=== PATIENT | male | born 1950 | race Caucasian/White ===

== ENCOUNTER 2023-08-07 20:54 | Inpatient (IN) | payer MEDICARE, OTHER ==
[~2023-08-07] VITALS: Ht 190.5 cm; Wt 99.3 kg
[2023-08-07] MEDS ORDERED: HYDR-3980 PO (21:28)
[2023-08-07] MEDS ORDERED: DULO20CA PO (21:28)
[2023-08-07] MEDS ORDERED: AMLO-212 PO (21:28)
[2023-08-07] MEDS ORDERED: CLON1TAB12 PO (21:28)
[2023-08-07] MEDS ORDERED: PREG150C PO (21:28)
[2023-08-07] MEDS ORDERED: POTA10CA43 PO (21:28)
[2023-08-07] MEDS ORDERED: HYDR25TA4 PO (21:28)
[2023-08-07] MEDS ORDERED: HYDROCODONE/APAP 5-325MG TABLET ONE ×2 (21:55→23:14)
[2023-08-07] MEDS: HYDROCODONE/APAP 5-325MG TABLET PO ONE ×2 (21:57→23:18)
[2023-08-08 03:35] VITALS: BP 140/87; TEMP 97.8; O2SAT 96
[2023-08-08] MEDS ORDERED: MAGNESIUM HYDROXIDE 30 ML LIQUID UDC PO PRN (04:45)
[2023-08-08] MEDS ORDERED: TEMAZEPAM 7.5 MG CAPSULE PO PRN (04:45)
[2023-08-08] MEDS ORDERED: MAG HYDROX/AL HYDROX/SIMETH 30 ML LIQUID UDC PO PRN (04:45)
[2023-08-08] MEDS: CLONAZEPAM 0.5 MG TABLET PO PRN (05:06)
[2023-08-08 07:49] VITALS: BP 124/76; TEMP 98; O2SAT 94
[2023-08-08] MEDS ORDERED: LATA7.5D EACHEYE (09:36)
[2023-08-08] MEDS ORDERED: PREG225C7 PO (09:36)
[2023-08-08] MEDS ORDERED: LISI30TA4 PO (09:36)
[2023-08-08] MEDS: SERTRALINE HCL 50 MG TABLET PO SCH (09:48)
[2023-08-08] MEDS: HYDROCODONE/APAP 10-325 MG TABLET PO PRN (10:33)
[2023-08-08] MEDS ORDERED: LISI20TA30 PO (11:18)
[2023-08-08] MEDS ORDERED: PREG150C46 PO (11:18)
[2023-08-08] MEDS: LISINOPRIL 20 MG TABLET PO SCH (12:58)
[2023-08-08] MEDS: AMLODIPINE 5 MG TABLET PO SCH (12:58)
[2023-08-08] MEDS: HYDROCHLOROTHIAZIDE 25 MG TABLET PO SCH (12:58)
[2023-08-08 15:51] VITALS: BP 127/63; TEMP 98; O2SAT 96
[2023-08-08] MEDS: PREGABALIN 50 MG CAPSULE PO SCH (16:09)
[2023-08-08 20:27] VITALS: BP 147/68; TEMP 97.9; O2SAT 97
[2023-08-08] MEDS: LATANOPROST OPHT DROP 2.5 ML BOTTLE EACHEYE SCH (21:20)
[2023-08-09 07:41] LABS: ALBUMIN 3.9 g/dL (3.4-5.0); BILIRUBIN,TOTAL 0.8 mg/dL (0.2-1.0); CALCIUM 9.2 mg/dL (8.5-10.1); CREATININE 0.8 mg/dL (0.6-1.3); POTASSIUM 3.1 mmol/L (3.5-5.1); TOTAL PROTEIN, SERUM 7.7 g/dL (6.4-8.2)
[2023-08-09 07:50] VITALS: BP 141/88; TEMP 97.9; O2SAT 99
[2023-08-09 08:39] VITALS: BP 149/86; TEMP 97.9; O2SAT 100
[2023-08-09] MEDS: ACETAMINOPHEN 325 MG TABLET PO PRN (13:50)
[2023-08-09] MEDS: POTASSIUM CHLORIDE 20 MEQ TAB.PRT.SR PO ONE (13:59)
[2023-08-09 16:15] VITALS: BP 130/91; TEMP 98.1; O2SAT 99
[2023-08-09 20:04] VITALS: BP 140/76; TEMP 98.2; O2SAT 98
[2023-08-10] MEDS: CLONAZEPAM 1 MG TABLET PO PRN (01:32)
[2023-08-10 07:49] VITALS: BP 137/71; TEMP 98.2; O2SAT 99
[2023-08-10 16:36] VITALS: BP 147/85; TEMP 98.1; O2SAT 99
[2023-08-10 19:55] VITALS: BP 129/86; TEMP 98; O2SAT 96
[2023-08-11 07:45] VITALS: BP 118/76; TEMP 98.1; O2SAT 97
[2023-08-11] MEDS ORDERED: POTASSIUM CHLORIDE 20 MEQ TAB.PRT.SR PO ONE (11:00)
[2023-08-11 15:50] VITALS: BP 135/75; TEMP 98.1; O2SAT 97
[2023-08-11 19:50] VITALS: BP 141/63; TEMP 98.1; O2SAT 96
[2023-08-12 08:22] VITALS: BP 143/96; TEMP 98.2; O2SAT 93
[2023-08-12 08:23] VITALS: BP 143/96
== END 2023-08-12 12:15 | disposition home or self-care (01) | DRG 880 ==
LOC: ER 21:22 → GPS 23:00
PROVIDERS: ADMIT Psychiatry & Neurology Psychiatry; ATTEND Nurse Practitioner Acute Care
DX: F41.9 Anxiety disorder, unspecified (principal); R45.851 Suicidal ideations; F32.A Depression, unspecified; G62.9 Polyneuropathy, unspecified; F43.10 Post-traumatic stress disorder, unspecified; G89.4 Chronic pain syndrome; H35.00 Unspecified background retinopathy; I10 Essential (primary) hypertension; Z79.899 Other long term (current) drug therapy; Z59.2 Discord with neighbors, lodgers and landlord
CPT/HCPCS: 36415; A4606; A4663